=== PATIENT | female | born 1965 | race Two or more races ===

== ENCOUNTER 2021-12-01 14:25 | Emergency (ER) | payer OTHER ==
[~2021-12-01] VITALS: Ht 160 cm; Wt 67.1 kg
[2021-12-01] MEDS ORDERED: ZESTRIL20 MG PO (14:54)
[2021-12-01] MEDS ORDERED: METFORMIN HCL500 M3 PO (14:57)
[2021-12-01] MEDS ORDERED: MOLNUPIRAVIR (200 MG PO (17:21)
== END 2021-12-01 17:33 | disposition home or self-care (01) ==
LOC: ER 14:25
DX: U07.1 COVID-19 (principal)